=== PATIENT | female | born 1955 | race Caucasian/White ===

== ENCOUNTER 2019-08-23 17:34 | Emergency (ER) | payer SELFPAY ==
[2019-08-23 17:53] VITALS: BP 150/82; PULSE 84; RESP 16; TEMP 36.7; O2SAT 97; BMI 23.5
--- NOTE | 2019-08-23 18:07 | ED.WOUNDLAC ---
HPI - Wound/Laceration General Chief Complaint: Wound/Laceration Stated Complaint: right knee/cut with glass Time Seen by Provider: 08/23/19 17:56 Source: patient Mode of arrival: Ambulatory Limitations: no limitations History of Present Illness HPI narrative: 64-year-old female last tetanus shot was 6 years ago here for evaluation of a laceration to her right knee. Patient states that she not a glass off the table and when she bent down to pick it up she kneeled on a piece of glass cutting the front of her right knee. She placed a bandage over the area and came to the emergency department. Review of Systems Musculoskeletal Musculoskeletal: Denies tingling Comments: No right knee joint pain Integumentary/Breasts Comments: Cut to the right knee Neurologic Neurologic: Denies tingling Hematologic/Lymphatic Hematologic/Lymphatic: Denies easy bleeding and Denies easy bruising Patient History Surgical History No pertinent past surgical history (Acute) Social History lives independently: Yes Exam Initial Vital Signs Initial Vital Signs: Vital Signs Temperature 98.0 F 08/23/19 17:53 Pulse Rate 84 08/23/19 17:53 Respiratory Rate 16 08/23/19 17:53 Blood Pressure 150/82 H 08/23/19 17:53 Pulse Oximetry 97 08/23/19 17:53 Const General: cooperative and comfortable Orientation: alert, awake and oriented x3 Resp Effort & Inspection: normal respiratory effort Skin Other: Patient with a 4 cm laceration over the anterior aspect of the right knee mid patella. Losing blood no active bleeding Neuro Sensory Exam: no sensory deficits noted Extrem Other: Laceration over the right anterior knee. When the knee is flexed through its range of motion there is a small 1 cm cut the fascia below this. The patella is not exposed. The laceration does not extend into the knee joint Procedures Laceration Repair Laceration 1: Site: lower extremity Side (If applicable): right Size (cm): 4 Description: linear Depth: involves muscle layer Local Anesthetic: lidocaine 1% Amount of anesthesia used (mL): 3 Pre-repair: wound explored and irrigated extensively Skin layer closed with: nylon Size (cm): 4-0 Number of sutures: 5 Technique: simple, interrupted Subcutaneous layer closed with: vicryl Size: 4-0 Number of sutures: 2 Technique: simple, interrupted Orthopedic Splinting/Casting Injury #1: Side: right Lower Extremity Injury Location: knee Lower Extremity Immobilizer: Gil wrap Post splinting neuro exam: intact Post splinting vascular exam: intact Placed by: Nursing Course Orders Ordered: Discontinued Medications Bacitracin (Bacitracin) 1 applic TOP NOW ONE Stop: 08/23/19 18:29 Lidocaine HCl (Xylocaine 1% (Pf)) 4 ml INJ NOW ONE Stop: 08/23/19 18:07 Last Admin: 08/23/19 18:12 Dose: 4 ml Documented by: KYLIE Vital Signs Vital signs: Vital Signs - 8 hr 08/23/19 17:53 Temperature 98.0 F Pulse Rate 84 Respiratory Rate 16 Blood Pressure 150/82 H Pulse Oximetry 97 MDM - Wound/Laceration MDM Narrative Medical decision making narrative: No foreign body noted. Patient's wound was cleaned. It was closed as described above. She was placed in an Gil bandage just to remind her not to bend her knee given the orientation of the laceration in the location. She was given care instructions and return precautions. She expressed understanding and agreement plan. Discharge Plan Departure Patient Disposition: Home Clinical Impression: Laceration Instructions: DI for Laceration Repair Activity Restrictions/Additional Instructions: You can cover the cut with topical antibiotic ointment. You can shower like normal. You can use soap and water like normal. The Gil bandages just to remind you not to bend your knee past about 20?. You can use it as needed. The stitches do need to be removed in approximately 10 days. Return to the emergency department for new or worsening symptoms
[2019-08-23] MEDS: LIDOCAINE 1% (PF) 4 ML INJ (18:12)
[2019-08-23] MEDS: BACITRACIN OINT 0.9 GM PCKT 1 APPLIC TOP (18:36)
== END 2019-08-23 18:43 | disposition home or self-care (01) ==
PROVIDERS: Emergency Provider Emergency Medicine
DX: S81.011A Laceration without foreign body, right knee, initial encounter (principal); W25.XXXA Contact with sharp glass, initial encounter
CPT/HCPCS: 12002; 99282; 99283